=== PATIENT | female | born 2000 | race Caucasian/White ===

== ENCOUNTER 2018-04-23 22:17 | Emergency (ER) | payer OTHER ==
[~2018-04-23] VITALS: Ht 170.2 cm; Wt 68.0 kg
[2018-04-23 22:17] VITALS: BP 126/88
[2018-04-23 23:37] LABS: BASO % 0 % (0-3); EOS # 0.2 x10^3/uL (0.0-0.7); EOS % 2 % (0-3); HEMATOCRIT 39.8 % (36.0-47.0); HEMOGLOBIN 13.5 g/dL (12.0-15.5); LYMPH # 3.1 x10^3/uL (1.0-4.8); LYMPH % 39 % (24-48); MEAN CORPUSCULAR HEMOGLOBIN 29 pg (25-35); MEAN CORPUSCULAR HGB CONC 34 g/dL (31-37); MEAN CORPUSCULAR VOLUME 86 fL (79-100); MONO # 0.5 x10^3/uL (0.0-1.1); MONO % 7 % (0-9); NEUT # 4.1 x10^3uL (1.8-7.7); NEUT % 51 % (31-73); PLATELET COUNT 247 x10^3/uL (140-400); RED BLOOD COUNT 4.62 x10^6/uL (3.50-5.40); RED CELL DISTRIBUTION WIDTH 12.7 % (11.5-14.5); WHITE BLOOD COUNT 7.9 x10^3/uL (4.0-11.0)
[2018-04-23] MEDS ORDERED: RALT400T PO (23:40)
[2018-04-23] MEDS ORDERED: EMTR1TAB8 PO (23:40)
--- NOTE | 2018-04-23 23:43 | PHYS DOC ---
Adult General Chief Complaint Chief Complaint: LACERATION/AVULSION HPI HPI Patient is a 18 year old female who presents with complaint of a needle stick injury. 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 This caused bleeding to the right thumb which resolved without significant treatment. The patient states that she is concerned that this pin was being used to give inmates tattoos. It is unknown who came in contact with this patient. The patient is concerned that she may have been exposed to hepatitis and/or HIV. Due to contact with multiple people, a source patient could not be identified. The patient was sent to the emergency department for evaluation in 2 discuss starting on post exposure prophylaxis. Patient denies any other symptoms. The patient denies any significant past medical history is at her baseline state of health currently. Review of Systems Review of Systems Constitutional: Denies fever or chills [] Eyes: Denies change in visual acuity, redness, or eye pain [] HENT: Denies nasal congestion or sore throat [] Respiratory: Denies cough or shortness of breath [] Cardiovascular: No additional information not addressed in HPI [] GI: Denies abdominal pain, nausea, vomiting, bloody stools or diarrhea [] : Denies dysuria or hematuria [] Musculoskeletal: Denies back pain or joint pain [] Integument: Needle stick injury to right thumb[] Neurologic: Denies headache, focal weakness or sensory changes [] Endocrine: Denies polyuria or polydipsia [] All other systems were reviewed and found to be within normal limits, except as documented in this note. Current Medications Current Medications Current Medications Medications (Trade) Dose Ordered Sig/Vincent Start Time Stop Time Status Last Admin Dose Admin Emtricitabine/ Tenofovir (Truvada 200/300 Mg) 1 tab 1X STAT 04/23/18 23:01 04/23/18 23:02 UNV Raltegravir (Isentress) 400 mg 1X STAT 04/23/18 23:01 04/23/18 23:02 UNV Allergies Allergies Allergies Coded Allergies Type Severity Reaction Last Updated Verified No Known Drug Allergies 04/23/18 No Physical Exam Physical Exam Constitutional: Well developed, well nourished, no acute distress, non-toxic appearance. [] HENT: Normocephalic, atraumatic, bilateral external ears normal, oropharynx moist, no oral exudates, nose normal. [] Eyes: PERRLA, EOMI, conjunctiva normal, no discharge. [] Neck: Normal range of motion, no tenderness, supple, no stridor. [] Cardiovascular:Heart rate regular rhythm, no murmur [] Lungs & Thorax: Bilateral breath sounds clear to auscultation [] Abdomen: Bowel sounds normal, soft, no tenderness, no masses, no pulsatile masses. [] Skin: Warm, dry, 3 mm superficial puncture injury to right thumb tip, no rash. [ ] Back: No tenderness, no CVA tenderness. [] Extremities: No tenderness, no cyanosis, no clubbing, ROM intact, no edema. [] Neurologic: Alert and oriented X 3, normal motor function, normal sensory function, no focal deficits noted. [] Current Patient Data Vital Signs Vital signs were reviewed and are stable Lab Results Laboratory Tests Test 04/23/18 23:11 04/23/18 23:30 Urine Test Negative White Blood Count 7.9 x10^3/uL Red Blood Count 4.62 x10^6/uL Hemoglobin 13.5 g/dL Hematocrit 39.8 % Mean Corpuscular Volume 86 fL Mean Corpuscular Hemoglobin 29 pg Mean Corpuscular Hemoglobin Concent 34 g/dL Red Cell Distribution Width 12.7 % Platelet Count 247 x10^3/uL Neutrophils (%) (Auto) 51 % Lymphocytes (%) (Auto) 39 % Monocytes (%) (Auto) 7 % Eosinophils (%) (Auto) 2 % Basophils (%) (Auto) 0 % Neutrophils # (Auto) 4.1 x10^3uL Lymphocytes # (Auto) 3.1 x10^3/uL Monocytes # (Auto) 0.5 x10^3/uL Eosinophils # (Auto) 0.2 x10^3/uL Basophils # (Auto) 0.0 x10^3/uL Sodium Level 142 mmol/L Potassium Level 3.9 mmol/L Chloride Level 105 mmol/L Carbon Dioxide Level 32 mmol/L Anion Gap 5 Blood Urea Nitrogen 11 mg/dL Creatinine 0.8 mg/dL Estimated GFR (Cockcroft-Gault) 91.4 BUN/Creatinine Ratio 14 Glucose Level 86 mg/dL Calcium Level 9.5 mg/dL Total Bilirubin 0.4 mg/dL Aspartate Amino Transf (AST/SGOT) 11 U/L Alanine Aminotransferase (ALT/SGPT) 20 U/L Alkaline Phosphatase 67 U/L Total Protein 7.5 g/dL Albumin 4.1 g/dL Albumin/Globulin Ratio 1.2 Current Medications Medications (Trade) Dose Ordered Sig/Vincent Route PRN Reason Start Time Stop Time Status Last Admin Dose Admin Raltegravir (Isentress) 400 mg 1X ONCE PO 04/24/18 00:00 04/24/18 00:01 DC 04/24/18 00:22 Emtricitabine/ Tenofovir (Truvada 200/300 Mg) 1 tab 1X ONCE PO 04/24/18 00:00 04/24/18 00:01 DC 04/24/18 00:22 EKG EKG Not performed[] Radiology/Procedures Radiology/Procedures Not performed[] Course & Med Decision Making Course & Med Decision Making Pertinent Labs and Imaging studies reviewed. (See chart for details) The patient appears well at this time. The transmission risk is quite low given that the patient had her skin appears to by solid-core pin. Unfortunately a source patient cannot be identified. After discussing treatment options including risks and benefits of both, the patient has elected to start on post exposure prophylaxis treatment for possible HIV transmission. The patient voices understanding that transmission of possible hepatitis C infection cannot be prevented. The patient states that she has undergone hepatitis B vaccination. Patient started on Isentress and Truvada. Baseline lab work was drawn in the emergency department. Patient will continue on 28 day course. Recommended follow-up with company physician or patient's primary physician in the next week for reevaluation. Informed patient she would need to have a CBC and CMP drawn in 2 weeks for monitoring of possible adverse effects of medication. Also recommended that patient have an HIV screening antibody drawn at 4 weeks and 12 weeks post exposure. Recommended return to emergency department for any worsening symptoms. Patient was understanding and agreement with treatment plan.[] Dragon Disclaimer Dragon Disclaimer This electronic medical record was generated, in whole or in part, using a voice recognition dictation system. Departure Departure: Impression: Primary Impression: Needle stick injury of finger Disposition: HOME, SELF-CARE Condition: STABLE Referrals: PCP,NO (PCP) Patient Instructions: Needle Stick Injury Additional Instructions: You have been started on medications for post exposure prophylaxis of HIV transmission. Since there is not a source patient to test at this time, U will need to complete the full 28 day course of therapy. This regimen does not prevent transmission of hepatitis C, though given your exposure the risk of hepatitis C transmission is very low. He will need to have a complete blood cell count and comprehensive metabolic panel retested in 2 weeks while taking the current medications. He will also need to have an HIV antibody screening in 4 weeks and again at 12 weeks. Please follow-up with your company physician or primary doctor in the next 5-7 days for reevaluation. Return to the emergency department for any worsening symptoms. Scripts Emtricitabine/Tenofovir (TRUVADA 200 MG-300 MG TABLET) 1 Each Tablet 1 TAB PO DAILY, #28 TAB 0 Refills Prov: EDWARD JOSHUA MD 04/23/18 Raltegravir Potassium (ISENTRESS) 400 Mg Tablet 1 TAB PO BID, #28 TAB 0 Refills Prov: EDWARD JOSHUA MD 04/23/18 Problem Qualifiers Primary Impression: Needle stick injury of finger Encounter type: initial encounter Qualified Codes: S61.239A - Puncture wound without foreign body of unspecified finger without damage to nail, initial encounter; W27.3XXA - Contact with needle (sewing), initial encounter EDWARD JOSHUA MD Apr 23, 2018 23:43
[2018-04-23 23:50] LABS: U PREG PATIENT NEGATIVE (NEG)
[2018-04-23 23:53] LABS: ALBUMIN 4.1 g/dL (3.4-5.0); ALBUMIN/GLOBULIN RATIO 1.2 (1.0-1.7); CALCIUM 9.5 mg/dL (8.5-10.1); CREATININE 0.8 mg/dL (0.6-1.0); GFR 91.4; POTASSIUM 3.9 mmol/L (3.5-5.1); TOTAL BILIRUBIN 0.4 mg/dL (0.2-1.0); TOTAL PROTEIN 7.5 g/dL (6.4-8.2)
[2018-04-24] MEDS ORDERED: EMTRICITAB/TENOFOVIR 200/300MG TABLET. PO ONE
[2018-04-24] MEDS ORDERED: RALTEGRAVIR 400 MG TABLET. PO ONE
== END 2018-04-24 00:25 | disposition home or self-care (01) ==
LOC: ER 22:17
DX: S61.031A Puncture wound without foreign body of right thumb without damage to nail, initial encounter (principal); W27.3XXA Contact with needle (sewing), initial encounter; Y93.89 Activity, other specified; Y92.89 Other specified places as the place of occurrence of the external cause; Y99.8 Other external cause status
CPT/HCPCS: 36415; 80053; 81025; 85025; 86703; 86705; 86709; 86803; 87340; 99284

== ENCOUNTER 2020-01-18 05:00 | Emergency (ER) | payer OTHER ==
[~2020-01-18] VITALS: Ht 170.2 cm; Wt 75.4 kg
[~2020-01-18 05:00] MED LIST: EMTR1TAB8 PO; RALT400T PO
--- NOTE | 2020-01-18 05:28 | PHYS DOC ---
Past History Past Medical History: No Pertinent History (MARIBEL IZAGUIRRE DO) Past Surgical History: Other (MARIBEL IZAGUIRRE DO) Alcohol Use: None Drug Use: None (MARIBEL IZAGUIRRE DO) General Adult EDM: Chief Complaint: CHEST PAIN HPI: HPI: 19-year-old female presents with chest pain. 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 She was not given a any exertion when it started. It was was about 2 hours prior to arrival. It started as a mild pressure and "blossomed" into a central heaviness that is a 5 out of 10. It is currently 4 out of 10. Nothing seems to make it better or worse. She had this a couple weeks ago and went to another hospital. She was diagnosed with UTI. They ruled out a pulmonary embolus because she recently had a baby. She denies shortness of breath or diaphoresis. Denies fever chills. (MARIBEL IZAGUIRRE DO) Review of Systems: Review of Systems: Constitutional: Denies fever or chills Eyes: Denies change in visual acuity HENT: Denies nasal congestion or sore throat Respiratory: Denies cough or shortness of breath Cardiovascular: Chest pain GI: Denies abdominal pain, nausea, vomiting, bloody stools or diarrhea : Denies dysuria Musculoskeletal: Denies back pain or joint pain Integument: Denies rash Neurologic: Denies headache, focal weakness or sensory changes Endocrine: Denies polyuria or polydipsia Lymphatic: Denies swollen glands Psychiatric: Denies depression or anxiety (MARIBEL IZAGUIRRE DO) Heart Score: HEART Score for Chest Pain: HEART Score for Chest Pain Response (Comments) Value History Slighlty/Non-Suspicious 0 ECG Normal 0 Age < 45 0 Risk Factors No Risk Factors 0 Troponin < Normal Limit 0 Total 0 Risk Factors: Risk Factors: DM, Current or recent (<one month) smoker, HTN, HLP, family history of CAD, obesity. Risk Scores: Score 0 - 3: 2.5% MACE over next 6 weeks - Discharge Home Score 4 - 6: 20.3% MACE over next 6 weeks - Admit for Clinical Observation Score 7 - 10: 72.7% MACE over next 6 weeks - Early Invasive Strategies (MARIBEL IZAGUIRRE DO) HEART Score for Chest Pain: HEART Score for Chest Pain Response (Comments) Value History Slighlty/Non-Suspicious 0 ECG Normal 0 Age < 45 0 Risk Factors No Risk Factors 0 Troponin < Normal Limit 0 Total 0 Current Medications: Current Meds: Current Medications Medications (Trade) Dose Ordered Sig/Vincent Start Time Stop Time Status Last Admin Dose Admin Aspirin (Aspirin Chewable) 324 mg 1X ONCE 01/18/20 05:15 01/18/20 05:16 UNV Sodium Chloride 1,000 ml @ 1,000 mls/hr Q1H 01/18/20 05:13 01/18/20 06:12 UNV (MARIBEL IZAGUIRRE DO) Allergies: Allergies: Allergies Coded Allergies Type Severity Reaction Last Updated Verified No Known Drug Allergies 04/23/18 No (MARIBEL IZAGUIRRE DO) Physical Exam: PE: Constitutional: Well developed, well nourished, no acute distress, non-toxic appearance. [] HENT: Normocephalic, atraumatic, bilateral external ears normal, oropharynx moist, no oral exudates, nose normal. [] Eyes: PERRLA, EOMI, conjunctiva normal, no discharge. [] Neck: Normal range of motion, no tenderness, supple, no stridor. [] Cardiovascular:Heart rate regular rhythm, no murmur [] Lungs & Thorax: Bilateral breath sounds clear to auscultation [] Abdomen: Bowel sounds normal, soft, no tenderness, no masses, no pulsatile masses. [] Skin: Warm, dry, no erythema, no rash. [] Back: No tenderness, no CVA tenderness. [] Extremities: No tenderness, no cyanosis, no clubbing, ROM intact, no edema. [] Neurologic: Alert and oriented X 3, normal motor function, normal sensory function, no focal deficits noted. [] Psychologic: Affect normal, judgement normal, mood normal. [] (MARIBEL IZAGUIRRE DO) EKG: EKG: Sinus rhythm, rate 72, normal axis, no ST elevations or depressions. [] (MARIBEL IZAGUIRRE DO) Radiology/Procedures: Radiology/Procedures: [] (MARIBEL IZAGUIRRE DO) Radiology/Procedures: [address] [address] IMAGING REPORT Signed PATIENT: ELIZABETH AGUDELO ACCOUNT: [id number] : 2000 LOCATION: ER AGE: 19 SEX: F EXAM STATUS: REG ER ORD. PHYSICIAN: MARIBEL IZAGUIRRE DO REASON: Chest pain PROCEDURE: PORTABLE CHEST 1V AP portable chest radiograph 01/18/2020 Clinical History: Chest pain. An AP erect portable digital radiograph of the chest was obtained. No previous studies are available for comparison. The cardiac and mediastinal silhouettes are within normal limits in size and configuration. No acute pulmonary infiltrate is seen. No pleural effusion or pneumothorax is noted. The osseous structures are grossly intact. IMPRESSION: No acute abnormality is seen. Electronically signed by: Luigi Dennis MD (01/18/2020 6:10 AM) [id number] DICTATED AND SIGNED BY: LUIGI DENNIS MD DATE: 01/18/20 06 CC: MARIBEL IZAGUIRRE DO; PCP,NO ~ (PAUL FRANKLIN DO) Course & Med Decision Making: Course & Med Decision Making Pertinent Labs and Imaging studies reviewed. (See chart for details) The patient's work-up is pending. I am signing her out to Dr. Franklin at 0600. [] (MARIBEL IZAGUIRRE DO) Course & Med Decision Making CHEST PAIN, NONSPECIFIC: The patient presents today with chest pain lasting [duration]. The quality of the pain is very atypical for acute coronary syndrome. Additionally, the patient has minimal risk factors for coronary artery disease with a suggestion of good exercise tolerance and does not have ongoing chest pain. Given the duration of the chest pain with cardiac enzymes returning within normal limits, I do feel that from a risk stratification standpoint, the patient can be safely discharged home for outpatient evaluation by the primary care physician. The patient, however, fully understands that the evaluation today in no way rules out coronary artery disease as a possibility and that close followup is necessary as a component of a complete evaluation. The patient also understands that should the pain change, or become more frequent, more intense, or should the patient develop new symptoms, the patient is instructed to return immediately to the emergency room for reevaluation. However, at this time, given the lack of significant risk factors in conjunction with an atypical history in conjunction with normal enzymes despite the duration of pain and an unchanged or normal EKG, I do feel that the information available to us at this time suggests that this is unlikely to represent acute plaque rupture and that the risk of morbidity or mortality is low. Also considered today was the possibility of a pneumothorax, pneumonia, pulmonary embolus, mediastinitis, and thoracic aortic dissection. However, after careful consideration of the patient's clinical history and presentation and findings, there is no evidence to suggest any of these as a likely diagnosis and therefore feel that the continued pursuit of these etiologies is not warranted at this time. (PAUL FRANKLIN DO) Dragon Disclaimer: Dragon Disclaimer: This electronic medical record was generated, in whole or in part, using a voice recognition dictation system. (MARIBEL IZAGUIRRE DO) Departure Departure: Impression: Primary Impression: Chest pain Disposition: HOME/RESIDENCE PRIOR TO ADM Condition: STABLE Referrals: PCP,NO (PCP) FOLLOW UP WITH YOUR DOCTOR NEEDED Patient Instructions: Chest Pain (Nonspecific) Additional Instructions: Thank you for visiting our Emergency Department. We appreciate you trusting us with your care. If any additional problems come up don't hesitate to return to visit us. Please follow up with your primary care provider so they can plan additional care if needed and know about the problem that you had. If symptoms worsen come back to the Emergency Department. Any concerning symptoms that start such as chest pain, shortness of air, weakness or numbness on one side of the body, running high fevers or any other concerning symptoms return to the ER. MARIBEL IZAGUIRRE DO January 18, 2020 05:28 PAUL FRANKLIN DO January 18, 2020 07:16
[2020-01-18] MEDS: IV NORMAL SALINE 1,000ML 1,000 ML IV SCH (05:36)
[2020-01-18] MEDS: FAMOTIDINE 20 MG/2 ML VIAL IVP ONE (05:37)
[2020-01-18] MEDS: ASPIRIN CHEWABLE 81 MG TABLET. PO ONE (05:37)
[2020-01-18 05:56] LABS: BASO % 1 % (0-3); EOS # 0.2 x10^3/uL (0.0-0.7); EOS % 3 % (0-3); HEMATOCRIT 41.7 % (36.0-47.0); HEMOGLOBIN 13.7 g/dL (12.0-15.5); LYMPH # 3.2 x10^3/uL (1.0-4.8); LYMPH % 49 % (24-48); MEAN CORPUSCULAR HEMOGLOBIN 28 pg (25-35); MEAN CORPUSCULAR HGB CONC 33 g/dL (31-37); MEAN CORPUSCULAR VOLUME 85 fL (79-100); MONO # 0.4 x10^3/uL (0.0-1.1); MONO % 7 % (0-9); NEUT # 2.7 x10^3uL (1.8-7.7); NEUT % 41 % (31-73); PLATELET COUNT 260 x10^3/uL (140-400); RED BLOOD COUNT 4.92 x10^6/uL (3.50-5.40); RED CELL DISTRIBUTION WIDTH 13.6 % (11.5-14.5); WHITE BLOOD COUNT 6.6 x10^3/uL (4.0-11.0)
[2020-01-18 05:56] LABS: BILIRUBIN,URINE NEG (NEG); CLARITY,URINE CLEAR; COLOR,URINE YELLOW; GLUCOSE,URINE NEG (NEG)
[2020-01-18 05:57] LABS: NITRITE,URINE NEG (NEG); UROBILINOGEN,URINE 0.2 mg/dL (0.2 mg/dL)
[2020-01-18 05:57] LABS: CALCIUM 9.7 mg/dL (8.5-10.1); CREATININE 0.8 mg/dL (0.6-1.0); GFR 90.5
[2020-01-18 05:59] LABS: BACTERIA,URINE 0 /HPF (0-FEW); SQUAMOUS EPITHELIAL CELL,UR FEW /LPF
[2020-01-18 06:00] LABS: BARBITURATES NEG (NEG); BENZODIAZEPINES NEG (NEG); CANNABINOIDS NEG (NEG); COCAINE NEG (NEG); METHADONE NEG (NEG); OPIATES NEG (NEG); PHENCYCLIDINE NEG (NEG)
[2020-01-18 06:04] LABS: AMPHETAMINE/METHAMPHETAMINE NEG (NEG)
[2020-01-18 06:07] LABS: ALBUMIN 4.1 g/dL (3.4-5.0); ALBUMIN/GLOBULIN RATIO 1.2 (1.0-1.7); TOTAL BILIRUBIN 0.4 mg/dL (0.2-1.0); TOTAL PROTEIN 7.4 g/dL (6.4-8.2)
[2020-01-18 06:12] VITALS: BP 128/85
--- NOTE | 2020-01-18 06:12 | RAD ---
AP portable chest radiograph 01/18/2020 Clinical History: Chest pain. An AP erect portable digital radiograph of the chest was obtained. No previous studies are available for comparison. The cardiac and mediastinal silhouettes are within normal limits in size and configuration. No acute pulmonary infiltrate is seen. No pleural effusion or pneumothorax is noted. The osseous structures are grossly intact. IMPRESSION: No acute abnormality is seen. Electronically signed by: Luigi Dennis MD (01/18/2020 6:10 AM) [id number]
--- NOTE | 2020-01-18 07:16 | EKG ---
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
== END 2020-01-18 07:36 | disposition home or self-care (01) ==
LOC: ER 05:00
DX: R07.89 Other chest pain (principal)
CPT/HCPCS: 36415; 71045; 80053; 80307; 81001; 81025; 83690; 84484; 85025; 87086; 93005; 96374; 99285; J3490; J7030